=== PATIENT | female | born 1945 | race Hispanic/Latino ===

== ENCOUNTER 2021-07-17 09:29 | Observation (INO) | payer MEDICARE ==
[~2021-07-17] VITALS: Ht 157.5 cm; Wt 94.9 kg
[~2021-07-17 09:29] MED LIST: LSNP2.5 PO; PROTONIX40 MG/ML PO
[2021-07-17] MEDS ORDERED: ATORVASTATIN CA10 MG PO (10:23)
[2021-07-17] MEDS ORDERED: CLONIDINE HCL 0.1 MG TAB ONE (12:29)
[2021-07-17] MEDS ORDERED: ONDANSETRON HCL INJ 2MG/ML 2ML 2 MG/ML VIAL IV PRN (13:30)
[2021-07-17] MEDS ORDERED: CLONIDINE HCL 0.1 MG TAB PO ONE (14:15)
[2021-07-17] MEDS ORDERED: ASPIRIN 325 MG TAB ONE (14:41)
[2021-07-17] MEDS ORDERED: ASPIRIN 325 MG TAB PO ONE (14:45)
[2021-07-17 17:47] VITALS: BP_SYST 144; BP_SYST 155; BP_DIAS 57; BP_DIAS 58
[2021-07-17 17:49] VITALS: BP 155/57
[2021-07-17 20:00] VITALS: BP 141/57
[2021-07-17] MEDS ORDERED: LISINOPRIL 10 MG TAB PO ONE (21:00)
[2021-07-18] VITALS (9 sets, daily range): BP systolic 117–145; BP diastolic 42–72
[2021-07-18] MEDS: ASPIRIN 325 MG TAB EC PO SCH ×2 (09:02→09:04)
[2021-07-18] MEDS: ATORVASTATIN 10 MG TAB PO SCH (09:04)
[2021-07-18] MEDS ORDERED: SODIUM CHLORIDE 0.9% 50ML 50 ML ONE (19:45)
[2021-07-18] MEDS ORDERED: IOPAMIDOL 370 MG/ML 200 ML INFUS..BTL INJ ONE (19:45)
[2021-07-19] VITALS (8 sets, daily range): BP systolic 127–166; BP diastolic 41–80
[2021-07-19] MEDS: ASPIRIN 325 MG TAB EC PO SCH (08:20)
[2021-07-19] MEDS: ATORVASTATIN 10 MG TAB PO SCH (08:20)
[2021-07-19] MEDS ORDERED: ONDANSETRON HCL 4 MG ORAL DISINTEGRATING TAB PO PRN (17:45)
== END 2021-07-20 06:00 | disposition home or self-care (01) ==
LOC: FSED 09:58 → ERHOLD 13:29 → MED/SURG2 17:31
DX: G45.9 Transient cerebral ischemic attack, unspecified (principal); I10 Essential (primary) hypertension; E78.5 Hyperlipidemia, unspecified; E11.9 Type 2 diabetes mellitus without complications; R55 Syncope and collapse; M79.662 Pain in left lower leg; Z88.6 Allergy status to analgesic agent; Z20.822 Contact with and (suspected) exposure to COVID-19
CPT/HCPCS: 36415; 70450; 70544; 70547; 71046; 71260; 80053; 82553; 84146; 84484; 85025; 85379; 93005 ×2; 93306; 93971; 99251; 99284; G0378 ×4; Q9967; U0002

== ENCOUNTER 2022-05-11 09:38 | Observation (INO) | payer MEDICARE ==
[~2022-05-11] VITALS: Ht 157.5 cm; Wt 88.5 kg
[~2022-05-11 09:38] MED LIST changes: +ATORVASTATIN CA10 MG PO
[2022-05-11] MEDS ORDERED: SODIUM CHLORIDE 0.9% 1000ML 1,000 ML IV SCH (10:00)
[2022-05-11 10:17] LABS: BASOPHILS % 0.6 % (0.0-1.0); EOSINOPHILS # (AUTO) 0.1 (0.0-0.4); EOSINOPHILS % 1.3 % (0.0-6.0); HEMATOCRIT 36.7 % (34.2-44.1); HEMOGLOBIN 11.8 g/dL (12.0-16.0); LYMPHOCYTES # (AUTO) 1.8 (1.0-3.2); LYMPHOCYTES % 29.3 % (18.0-39.1); MEAN CORPUSCULAR HEMOGLOBIN 32.4 pg (28-32); MEAN CORPUSCULAR HGB CONC 32.2 g/dL (31-35); MEAN CORPUSCULAR VOLUME 100.8 fL (81-99); MONOCYTES % 16.2 % (4.4-11.3); NEUTROPHILS # (AUTO) 3.2 (2.1-6.9); NEUTROPHILS % 52.4 % (38.7-80.0); PLATELET COUNT 168 x10e3/uL (140-360); RED BLOOD COUNT 3.64 x10e6/uL (3.6-5.1); RED CELL DISTRIBUTION WIDTH 12.7 % (11.7-14.4)
[2022-05-11 10:28] LABS: BACTERIA,URINE FEW /HPF; CLARITY,URINE SL CLOUDY (CLEAR); COLOR,URINE YELLOW (YELLOW); EPITHELIAL CELLS,URINE MANY /LPF; KETONES,URINE NEGATIVE (NEGATIVE); LEUKOCYTE ESTERASE ,URINE NEGATIVE (NEGATIVE); NITRITE,URINE NEGATIVE (NEGATIVE); PROTEIN,URINE DIPSTICK NEGATIVE (NEGATIVE); URINE UROBILINOGEN 0.2 mg/dL (0.2 - 1); WBC,URINE (MAN) 0-5 /HPF (0-5)
[2022-05-11 10:34] LABS: ALBUMIN 3.2 g/dL (3.5-5.0); ANION GAP 14.5 mmol/L (8-16); CREATININE, SERUM 1.2 mg/dL (0.57-1.11); POTASSIUM 3.5 mmol/L (3.5-5.1)
[2022-05-11 10:41] LABS: INR 1.01; PROTHROMBIN TIME 14.2 seconds (11.9-14.5)
[2022-05-11 10:42] LABS: PARTIAL THROMBOPLASTIN TIME 28.2 seconds (23.8-35.5)
[2022-05-11] MEDS ORDERED: ONDANSETRON HCL INJ 2MG/ML 2ML 2 MG/ML VIAL IV PRN (12:30)
[2022-05-11] MEDS: SODIUM CHLORIDE 0.9% 1000ML 1,000 ML IV SCH ×2 (14:15→23:18)
[2022-05-11 14:57] VITALS: BP 149/63
[2022-05-11 15:12] VITALS: BP 149/63
[2022-05-11 15:29] VITALS: BP 142/56
[2022-05-11 20:00] VITALS: BP 124/54
[2022-05-11 21:00] VITALS: BP 124/54
[2022-05-12] VITALS: BP 128/59
[2022-05-12 04:00] VITALS: BP 131/56
[2022-05-12] MEDS: SODIUM CHLORIDE 0.9% 1000ML 1,000 ML IV SCH (05:23)
[2022-05-12 07:09] LABS: BASOPHILS % 0.1 % (0.0-1.0); HEMATOCRIT 35.9 % (34.2-44.1); HEMOGLOBIN 11.6 g/dL (12.0-16.0); LYMPHOCYTES # (AUTO) 0.8 (1.0-3.2); LYMPHOCYTES % 6.1 % (18.0-39.1); MEAN CORPUSCULAR HEMOGLOBIN 32.4 pg (28-32); MEAN CORPUSCULAR HGB CONC 32.3 g/dL (31-35); MEAN CORPUSCULAR VOLUME 100.3 fL (81-99); MONOCYTES % 7.5 % (4.4-11.3); PLATELET COUNT 182 x10e3/uL (140-360); RED BLOOD COUNT 3.58 x10e6/uL (3.6-5.1); RED CELL DISTRIBUTION WIDTH 12.3 % (11.7-14.4)
[2022-05-12 07:38] VITALS: BP 138/56
[2022-05-12 07:40] LABS: ANION GAP 14.2 mmol/L (8-16); CALCIUM 8.3 mg/dL (8.4-10.2); CREATININE, SERUM 0.71 mg/dL (0.57-1.11); POTASSIUM 4.2 mmol/L (3.5-5.1)
[2022-05-12 10:00] VITALS: BP 138/56
[2022-05-12 11:19] VITALS: BP 128/58
== END 2022-05-12 14:07 | disposition home or self-care (01) ==
LOC: ER 10:03 → INTOOBSV 12:29 → ERHOLD 12:29 → MED/SURG2 14:10
PROVIDERS: ADMIT Internal Medicine; ATTEND Internal Medicine
DX: R55 Syncope and collapse (principal); E86.0 Dehydration; U07.1 COVID-19; I12.9 Hypertensive chronic kidney disease with stage 1 through stage 4 chronic kidney disease, or unspecified chronic kidney disease; N18.30 Chronic kidney disease, stage 3 unspecified; E78.5 Hyperlipidemia, unspecified; D64.9 Anemia, unspecified; E66.01 Morbid (severe) obesity due to excess calories; Z68.35 Body mass index [BMI] 35.0-35.9, adult; Z28.310 Unvaccinated for COVID-19; Z82.49 Family history of ischemic heart disease and other diseases of the circulatory system
CPT/HCPCS: 36415 ×2; 51700; 70450; 71045; 80048; 80053; 81001; 83605; 85025 ×2; 85610; 85730; 87040; 87086; 93005; 99284; G0378 ×2; J0456 ×2; J0696 ×2; J7030 ×2; J7050 ×2; U0002

== ENCOUNTER 2023-04-05 14:44 | Emergency (ER) | payer MEDICARE ==
[~2023-04-05] VITALS: Ht 157.5 cm; Wt 88.5 kg
[2023-04-05 15:35] LABS: BASOPHILS % 0.5 % (0.0-1.0); EOSINOPHILS # (AUTO) 0.1 (0.0-0.4); EOSINOPHILS % 1.3 % (0.0-6.0); HEMATOCRIT 38.3 % (34.2-44.1); HEMOGLOBIN 12.6 g/dL (12.0-16.0); LYMPHOCYTES # (AUTO) 2.1 (1.0-3.2); MEAN CORPUSCULAR HEMOGLOBIN 32.2 pg (28-32); MEAN CORPUSCULAR HGB CONC 32.9 g/dL (31-35); MONOCYTES # (AUTO) 0.5 (0.2-0.8); MONOCYTES % 8.8 % (4.4-11.3); NEUTROPHILS # (AUTO) 2.9 (2.1-6.9); NEUTROPHILS % 51.4 % (38.7-80.0); PLATELET COUNT 204 x10e3/uL (140-360); RED BLOOD COUNT 3.91 x10e6/uL (3.6-5.1); RED CELL DISTRIBUTION WIDTH 12.9 % (11.7-14.4)
[2023-04-05 15:56] LABS: ALBUMIN/GLOBULIN RATIO 1.3 (0.8-2.0); ANION GAP 12.9 mmol/L (8-16); CALCIUM 9.4 mg/dL (8.4-10.2); CREATININE, SERUM 0.77 mg/dL (0.57-1.11); POTASSIUM 3.9 mmol/L (3.5-5.1)
[2023-04-05] MEDS ORDERED: SODIUM CHLORIDE 0.9% 100 ML ONE (17:06)
[2023-04-05] MEDS ORDERED: IOPAMIDOL 370 MG/ML 100 ML INFUS..BTL INJ ONE (17:07)
[2023-04-05 18:06] VITALS: O2SAT 99
== END 2023-04-05 18:20 | disposition home or self-care (01) ==
LOC: ER 14:50
DX: M62.81 Muscle weakness (generalized) (principal); I10 Essential (primary) hypertension; E78.5 Hyperlipidemia, unspecified
CPT/HCPCS: 36415; 70450; 70496; 70498; 80053; 84484; 85025; 99284; J7050; Q9967

== ENCOUNTER 2024-04-08 13:47 | Emergency (ER) | payer MEDICARE ==
[~2024-04-08] VITALS: Ht 157.5 cm; Wt 88.5 kg
[2024-04-08 14:42] LABS: BASOPHILS % 0.6 % (0.0-1.0); EOSINOPHILS % 0.4 % (0.0-6.0); HEMATOCRIT 35.7 % (34.2-44.1); HEMOGLOBIN 12.1 g/dL (12.0-16.0); LYMPHOCYTES % 36.9 % (18.0-39.1); MEAN CORPUSCULAR HEMOGLOBIN 32.3 pg (28-32); MEAN CORPUSCULAR HGB CONC 33.9 g/dL (31-35); MEAN CORPUSCULAR VOLUME 95.2 fL (81-99); MONOCYTES # (AUTO) 0.4 (0.2-0.8); MONOCYTES % 6.7 % (4.4-11.3); NEUTROPHILS % 55.4 % (38.7-80.0); PLATELET COUNT 167 x10e3/uL (140-360); RED BLOOD COUNT 3.75 x10e6/uL (3.6-5.1); WHITE BLOOD COUNT 5.34 x10e3/uL (4.8-10.8)
[2024-04-08 14:57] LABS: CALCIUM 9.4 mg/dL (8.4-10.2); CREATININE, SERUM 0.75 mg/dL (0.57-1.11)
[2024-04-08] MEDS ORDERED: SODIUM CHLORIDE 0.9% 100 ML ONE ×2 (15:08→18:03)
[2024-04-08] MEDS ORDERED: IOPAMIDOL 370 MG/ML 100 ML INFUS..BTL INJ ONE ×2 (15:08→18:03)
[2024-04-08] MEDS: CLOPIDOGREL BISULFATE 75 MG TAB PO ONE (19:11)
[2024-04-08] MEDS: ASPIRIN 325 MG TAB PO ONE (19:11)
[2024-04-08 19:49] VITALS: O2SAT 96
[2024-04-08 19:51] VITALS: BP 177/72
[2024-04-08] MEDS: HYDRALAZINE HCL 20 MG/ML VIAL IV STA (19:51)
== END 2024-04-08 20:00 | disposition short-term general hospital (02) ==
LOC: ER 14:02
DX: R47.81 Slurred speech (principal); I63.9 Cerebral infarction, unspecified; I10 Essential (primary) hypertension; E78.5 Hyperlipidemia, unspecified; R94.31 Abnormal electrocardiogram [ECG] [EKG]
CPT/HCPCS: 36415; 70496; 70498; 80048; 85025; 93005; 99284; J0360; J7050; Q9967